=== PATIENT | female | born 1950 | race Caucasian/White ===

== ENCOUNTER → 2017-02-04 | Outpatient (CLI) | payer MEDICARE ==
--- NOTE | 2017-02-05 19:51 | Diagnostic Imaging Report ---
Bilateral screening mammogram 2D views with tomosynthesis The current study was also evaluated with a Computer Aided Detection (CAD) system. INDICATION: Screening. No current complaints stated on the questionnaire. COMPARISON: 04/04/2015. FINDINGS: The breasts are composed of scattered fibroglandular densities. Occasional benign-appearing calcifications are seen. Circumscribed nodules are noted in the left breast, smaller compared to the prior exam, suggestive of cysts. Allowing for technique and positional differences, no suspicious change is seen. IMPRESSION: No significant change. ACR BI-RADS Category 2: Benign findings. Result letter will be mailed to the patient. Note: At least 10% of breast cancer is not imaged by mammography. Dictated by: Dictated on workstation # [id number]
== END ==
LOC: RAD 08:20
PROVIDERS: ATTEND Family Medicine
DX: Z12.31 Encounter for screening mammogram for malignant neoplasm of breast (principal)
CPT/HCPCS: 77067

== ENCOUNTER → 2017-08-27 | Outpatient (CLI) | payer MEDICARE ==
--- NOTE | 2017-08-27 17:26 | Diagnostic Imaging Report ---
EXAMINATION: Right wrist at 5:08 p.m. Three views were obtained. There are no prior studies available for comparison. FINDINGS: There is a minimally impacted essentially nondisplaced fracture of the distal radial metaphysis. There is also a small avulsion fracture of the ulnar styloid. No other fracture or acute bony abnormality is identified. 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 The soft tissues are unremarkable. IMPRESSION: There is a minimally impacted essentially nondisplaced fracture of the distal radial metaphysis and a small avulsion fracture of the ulnar styloid. There is no acute bony abnormality noted otherwise. Dictated by: Dictated on workstation # [id number]
== END ==
LOC: RAD 16:21
PROVIDERS: ATTEND Family Medicine
DX: S52.501A Unspecified fracture of the lower end of right radius, initial encounter for closed fracture (principal); S52.611A Displaced fracture of right ulna styloid process, initial encounter for closed fracture
CPT/HCPCS: 73110

== ENCOUNTER → 2018-05-04 | Outpatient (CLI) | payer MEDICARE ==
--- NOTE | 2018-05-04 12:42 | Diagnostic Imaging Report ---
Indication: Routine screening. Comparison is made with prior exam from 02/04/2017 and 04/04/2015. 2-D and 3-D bilateral screening mammography was performed with CAD. Scattered fibroglandular densities are identified bilaterally. Circumscribed densities previously noted appear less prominent on today's study, likely diminution of cysts. No new mass or malignant-appearing microcalcifications are seen. Axillae are unremarkable. Impression: BI-RADS category 2 No mammographic features suspicious for malignancy are identified. ACR BI-RADS Category 2: Benign findings. Result letter will be mailed to the patient. Note: At least 10% of breast cancer is not imaged by mammography. Dictated by: Dictated on workstation # [id number]
== END ==
LOC: RAD 08:27
PROVIDERS: ATTEND Family Medicine
DX: Z12.31 Encounter for screening mammogram for malignant neoplasm of breast (principal)
CPT/HCPCS: 77067

== ENCOUNTER 2019-06-05 18:29 | Emergency (ER) | payer MEDICARE ==
[~2019-06-05] VITALS: Ht 162 cm; Wt 79.0 kg
[2019-06-05] MEDS ORDERED: TRANEXAMIC ACID 100 MG/ML 10 ML INJECTION IV ONE (18:33)
[2019-06-05] MEDS ORDERED: OXYMETAZOLINE (AFRIN) 0.05% NA 30 ML BTL ONE (18:44)
--- NOTE | 2019-06-05 18:59 | ED EENT ---
History of Present Illness General Chief Complaint: Nasal Problems Stated Complaint: BLOODY NOSE Source: patient Exam Limitations: no limitations History of Present Illness Date Seen by Provider: Jun 05, 2019 Time Seen by Provider: 18:35 Initial Comments To ER with left-sided epistaxis 1.5 hours. No anticoagulant use. Left-sided only. She's had this a few times in the past couple of months, always been left- sided. Timing/Duration: abrupt Severity: moderate Prearrival Treatment: no prearrival treatment Associated Symptoms: denies symptoms Allergies and Home Medications Allergies Coded Allergies: No Known Drug Allergies (Unverified , 06/30/12) Home Medications Lisinopril 10 Mg Tablet, Unknown Dose PO DAILY, (Reported) Patient Home Medication List Home Medication List Reviewed: Yes Review of Systems Review of Systems Constitutional: see HPI Eyes: No Symptoms Reported Ears: No Symptoms Reported Nose: see HPI, epistaxis Mouth: no symptoms reported Throat: no symptoms reported Respiratory: no symptoms reported Cardiovascular: no symptoms reported Musculoskeletal: no symptoms reported Past Afdepwu-Sswpsk-Mbtxmq Hx Patient Social History Recent Foreign Travel: No Contact w/Someone Who Travel: No Immunizations Up To Date Tetanus Booster (TDap): Less than 5yrs Seasonal Allergies Seasonal Allergies: No Past Medical History Gallbladder, Hysterectomy Hypertension Reproductive Disorders: No Female Reproductive Disorders: Denies [employer]CH[employer]ICIAN History: Hysterectomy Sexually Transmitted Disease: No HIV/AIDS: No Gall Bladder Disease Adverse Reaction/Blood Tranf: No Family Medical History No Pertinent Family Hx Physical Exam Vital Signs Vital Signs - First Documented 06/05/19 18:32 Temp 37.0 Pulse 95 Resp 18 B/P (MAP) 193/98 (129) Pulse Ox 92 Height, Weight, BMI Height: 5'4" Weight: 200lbs. oz. 90.556578lm; BMI Method:Stated General Appearance: WD/WN, no apparent distress Eyes: bilateral eye normal inspection, bilateral eye PERRL, bilateral eye EOMI Ears: bilateral ear auricle normal, bilateral ear canal normal, bilateral ear TM normal Nose: other (slow oozing of blood from the inferior lateral aspect about 1.5 cm deep on the left nostril. Attempted silver nitrate cautery, the area was rather large that was oozing blood. As such we traced a Merocel sponge then soaked it in oxymetazoline and nose clamp applied. Nothing draining down the oropharynx at this time-0.) Neck: non-tender, full range of motion Respiratory: no respiratory distress, no accessory muscle use Gastrointestinal: normal bowel sounds, non tender Neurologic/Psychiatric: alert, normal mood/affect, oriented x 3 Progress/Results/Core Measures Results/Orders Medications Given in ED Current Medications Medications Dose Ordered Sig/Mandie Route Start Time Stop Time Status Last Admin Dose Admin Oxymetazoline HCl 30 ml STK-MED ONCE .ROUTE 06/05/19 18:44 06/05/19 18:50 DC 06/05/19 18:50 30 ML Tranexamic Acid 1,000 mg STK-MED ONCE IV 06/05/19 18:33 06/05/19 18:39 DC 06/05/19 18:40 200 MG Vital Signs/I&O 06/05/19 18:32 Temp 37.0 Pulse 95 Resp 18 B/P (MAP) 193/98 (129) Pulse Ox 92 Departure Communication (Admissions) 1927-the Merocel sponge was removed from the left nostril, no active bleeding seen at this time from either the nose or the oropharynx. We will observe for another 20-30 minutes, if still no bleeding then discharge to home. 2014-still no bleeding. We will discharge to home Impression Primary Impression: Epistaxis Disposition: HOME, SELF-CARE Condition: Stable Departure-Patient Inst. Decision time for Depature: 20:10 Referrals: CHRIS GUEVARA DO (PCP/Family) Primary Care Physician Patient Instructions: Nosebleeds (DC) Add. Discharge Instructions: 1. Return to ER for any concerns 2. Follow-up with your doctor next week \\ All discharge instructions reviewed with patient and/or family. Voiced unders tanding. DANITZA MORENO APRN Jun 05, 2019 18:59
[2019-06-05] MEDS ORDERED: LISI10TA2 PO (19:05)
[2019-06-05 20:12] VITALS: BP 166/91
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
--- OUTSIDE RECORDS SUMMARY | 2019-06-06 21:30 | XMS REPORT | Continuity of Care Document ---
Author Organization Unknown Address Unknown Phone Unavailable Allergies Active Description Code Type Severity Reaction Onset Reported/Identified Relationship to Patient Clinical Status Yes No Known Drug Allergies [id number] Drug Allergy Unknown N/A 06/30/2012 Medications There is no data. Problems Date Dx Coded Attending Type Code Diagnosis Diagnosed By 07/02/2012 Ot 574.00 KAMARI WEEKS W AC CHOLECYST 03/04/2014 PAOLA BLUNTCHRIS Ot V76.12 03/04/2014 PAOLA BLUNTCHRIS Ot 610.0 03/04/2014 PAOLA BLUNTCHRIS Ot 793.80 05/11/2014 Ot 401.9 HYPE RTENSION NOS 05/11/2014 Ot 844.9 SPRA IN OF KNEE LEG NOS 05/11/2014 Ot 959.7 LOWE R LEG INJURY NOS 05/11/2014 Ot E000.8 OTH ER EXTERNAL CAUSE STATUS 05/11/2014 Ot E001.0 ACT IVITIES INVOLVING WALKING, MARCHING A 05/11/2014 Ot E849.0 ACC IDENT IN HOME 05/11/2014 Ot E880.9 FAL L ON STAIR/STEP NEC 02/04/2017 PAOLA CHRIS BLUNT Ot V76.12 OTH SCREEN MAMMO-MALIGN NEOPLASM OF [place] 02/04/2017 PAOLA BLUNTCHRIS Ot 610.0 SOLITARY CYST OF BREAST 02/04/2017 PAOLA CHRIS BLUNT Ot 793.80 UNSPEC ABNORMAL MAMMOGRAM 02/04/2017 PAOLA BLUNTCHRIS Ot 793.89 OTH (ABN) FINDINGS ON RADIOLOGICAL EXAMI 02/04/2017 CHRIS GUEVARA DO Ot Z12.31 ENCNTR SCREEN MAMMOGRAM FOR MALIGNANT NE 02/25/2017 PAOLA CHRIS BLUNT Ot Z12.31 ENCNTR SCREEN MAMMOGRAM FOR MALIGNANT NE 08/27/2017 LUZSEAN CHRIS BLUNT Ot V76.12 OTH SCREEN MAMMO-MALIGN NEOPLASM OF [place] 08/27/2017 C[facility]ER CHRIS BLUNT Ot 610.0 SOLITARY CYST OF BREAST 08/27/2017 GELLENDER DO, CHRIS Jaimes Ot 793.80 UNSPEC ABNORMAL MAMMOGRAM 08/27/2017 GELLENDER DO, CHRIS Jaimes Ot 793.89 OTH (ABN) FINDINGS ON RADIOLOGICAL EXAMI 08/27/2017 GELLENDER DO, CHRIS Jaimes Ot Z12.31 ENCNTR SCREEN MAMMOGRAM FOR MALIGNANT NE 08/27/2017 GELLENDER DO, CHRIS Jaimes Ot Z12.31 ENCNTR SCREEN MAMMOGRAM FOR MALIGNANT NE 08/28/2017 GELLENDER DO, CHRIS Jaimes Ot S52.501A UNSP FRACTURE OF THE LOWER END OF RIGHT 08/28/2017 GELLENDER DO, CHRIS Theodore Ot S52.611A DISP FX OF RIGHT ULNA STYLOID PROCESS, I 09/17/2017 GELLENDER DO, CHRIS Jaimes Ot S52.501A UNSP FRACTURE OF THE LOWER END OF RIGHT 09/17/2017 GELLENDER DO, CHRIS Theodore Ot S52.611A DISP FX OF RIGHT ULNA STYLOID PROCESS, I 05/01/2018 GELLENDER DO, CHRIS Theodore Ot Z12.31 ENCNTR SCREEN MAMMOGRAM FOR MALIGNANT NE 05/01/2018 GELLENDER DO, CHRIS Theodore Ot Z12.31 ENCNTR SCREEN MAMMOGRAM FOR MALIGNANT NE 05/01/2018 GELLENDER DO, CHRIS Theodore Ot V76.12 OTH SCREEN MAMMO-MALIGN NEOPLASM OF [place] 05/01/2018 GELLENDER DO, CHRIS Jaimes Ot 610.0 SOLITARY CYST OF BREAST 05/01/2018 GELLENDER DO, CHRIS Jaimes Ot 793.80 UNSPEC ABNORMAL MAMMOGRAM 05/01/2018 GELLENDER DO, CHRIS Theodore Ot 793.89 OTH (ABN) FINDINGS ON RADIOLOGICAL EXAMI 05/01/2018 GELLENDER DO, CHRIS Theodore Ot Z12.31 ENCNTR SCREEN MAMMOGRAM FOR MALIGNANT NE 05/01/2018 GELLENDER DO, CHRIS Theodore Ot Z12.31 ENCNTR SCREEN MAMMOGRAM FOR MALIGNANT NE 05/01/2018 GELLENDER DO, CHRIS Theodore Ot S52.501A UNSP FRACTURE OF THE LOWER END OF RIGHT 05/01/2018 GELLENDER DO, CHRIS Theodore Ot S52.611A DISP FX OF RIGHT ULNA STYLOID PROCESS, I 05/01/2018 GELLENDER DO, CHRIS Jaimes Ot Z12.31 ENCNTR SCREEN MAMMOGRAM FOR MALIGNANT NE 05/04/2018 [facility] Ja[facility] Ot V76.12 OTH SCREEN MAMMO-MALIGN NEOPLASM OF [place] 05/04/2018 [facility]RIS Jaimes Ot 610.0 SOLITARY CYST OF BREAST 05/04/2018 [facility], CHRIS Jaimes Ot 793.80 UNSPEC ABNORMAL MAMMOGRAM 05/04/2018 [facility] DO, CHRIS Jaimes Ot 793.89 OTH (ABN) FINDINGS ON RADIOLOGICAL EXAMI 05/04/2018 LUZDER DO, CHRIS Jaimes Ot Z12.31 ENCNTR SCREEN MAMMOGRAM FOR MALIGNANT NE 05/04/2018 [facility] CHRIS Jaimes Ot Z12.31 ENCNTR SCREEN MAMMOGRAM FOR MALIGNANT NE 05/04/2018 [facility]RIS Jaimes Ot S52.501A UNSP FRACTURE OF THE LOWER END OF RIGHT 05/04/2018 CRISTALLENDER DO, CHRIS Jaimes Ot S52.611A DISP FX OF RIGHT ULNA STYLOID PROCESS, I 05/04/2018 [facility], CHRIS Jaimes Ot Z12.31 ENCNTR SCREEN MAMMOGRAM FOR MALIGNANT NE 05/04/2018 [facility], CHRIS Jaimes Ot Z12.31 ENCNTR SCREEN MAMMOGRAM FOR MALIGNANT NE 05/26/2018 [facility], CHRIS Jaimes Ot Z12.31 ENCNTR SCREEN MAMMOGRAM FOR MALIGNANT NE Procedures Code Description Performed By Per wendie On [address]. [facility] ROSCOPIC CHOLECYSTECTOMY 07/01/2012 Results There is no data. Encounters ACCT No. Visit Date/Time Discharge Status Pt. Type Provider Facility Loc./Unit Complaint [id number] 05/04/2018 08:27:00 019 23:59:59 CLS Outpatient PAOLA BLUNT CHRIS Theodore [facility] RAD SCREENING [id number] 08/27/2017 16:21:00 018 23:59:59 [facility] RAD TRAUMA RIGHT WR IST [id number] 02/04/2017 08:20:00 017 23:59:59 CLS Outpatient [facility] CHRIS BLUNT [facility] RAD YEARLY MAMMO [id number] 04/04/2015 09:55:00 016 23:59:59 CLS Outpatient CHRIS GUEVARA DO [facility] RAD ROUTINE MAMMO S CREENING [id number] 03/04/2014 09:15:00 23:59:59 CLS Outpatient CHRIS GUEVARA DO [facility] RAD ABNORMAL MAMMO [id number] 09/15/2013 12:43:00 23:59:59 CLS Outpatient CHRIS GUEVARA DO [facility] RAD ABNORMAL MAMMOG AYLA [id number] 09/02/2013 11:10:00 23:59:59 CLS Outpatient CHRIS GUEVARA DO [facility] RAD SCREENING [id number] 05/11/2014 16:22:00 Document Registration [id number] 06/30/2012 20:37:00 Document Registration
== END 2019-06-05 20:12 | disposition home or self-care (01) ==
LOC: EDUNIT# 18:29 → ER 18:31
DX: R04.0 Epistaxis (principal); I10 Essential (primary) hypertension
CPT/HCPCS: 30901